=== PATIENT | male | born 1955 | race Two or more races ===

== ENCOUNTER 2019-12-28 22:22 | Inpatient (IN) | payer BC, OTHER ==
[~2019-12-28] VITALS: Ht 172.7 cm; Wt 66.2 kg
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
[2019-12-28 22:42] LABS: BASOPHILS # (AUTO) 0.1 /CMM (0.0-0.2); BASOPHILS % (AUTO) 0.8 % (0.0-2.0); EOSINOPHILS % (AUTO) 1.8 % (0.0-6.0); HEMATOCRIT 44 % (39-51); HEMOGLOBIN 14.9 g/dL (13.5-17.5); LYMPHOCYTES # (AUTO) 2.7 /CMM (0.8-4.8); LYMPHOCYTES % (AUTO) 30.8 % (20.0-44.0); MEAN CORPUSCULAR HGB CONC 34 g/dl (31.0-36.0); MEAN CORPUSCULAR VOLUME 90 fL (80-96); MONOCYTES # (AUTO) 0.8 /CMM (0.1-1.30); MONOCYTES % (AUTO) 9.5 % (2.0-12.0); NEUTROPHILS # (AUTO) 4.9 /CMM (1.8-8.9); NEUTROPHILS % (AUTO) 57.1 % (43.0-81.0); PLATELET COUNT (AUTO) 305 /CMM (150-450); RED BLOOD CELL COUNT(AUTO) 4.93 MIL/uL (4.5-6.0); WHITE BLOOD COUNT (AUTO) 8.6 K/uL (4.3-11.0)
--- NOTE | 2019-12-28 22:44 | NUR ---
IV LINE ESTABLISHED, FLUSHES WELL. PT KEYLA WELL.
[2019-12-28 22:50] LABS: CALCIUM, SERUM 9.1 mg/dL (8.5-10.1); CARBON DIOXIDE 29 mmol/L (21-32); CHLORIDE 104 mmol/L (98-107); CREATININE 0.7 mg/dL (0.6-1.3); GLUCOSE 104 mg/dL (74-106); POTASSIUM 3.2 mmol/L (3.5-5.1); SODIUM SERUM 141 mmol/L (136-145); UREA NITROGEN, BLOOD 14 mg/dL (7-18)
--- NOTE | 2019-12-28 22:55 | NUR ---
XRAY AT BEDSIDE
--- NOTE | 2019-12-28 23:45 | NUR ---
DR. LUI AT BEDSIDE
[2019-12-29] MEDS ORDERED: Z GUARD REMEDY 2 OZ OINT TP PRN
[2019-12-29] MEDS ORDERED: HYDROCODONE/APAP 5/325MG 1 EACH TABLET PO PRN
[2019-12-29] MEDS ORDERED: ONDANSETRON HCL/PF 4 MG/2 ML VIAL IVP PRN
[2019-12-29] MEDS ORDERED: ACETAMINOPHEN 325 MG TABLET PO PRN
[2019-12-29] MEDS ORDERED: MAGNESIUM HYDROXIDE 30 ML UDC PO PRN
[2019-12-29] MEDS ORDERED: MAG HYDROX/AL HYDROX/SIMETH 30 ML UDC PO PRN
[2019-12-29] MEDS ORDERED: ASPI-1169 PO (00:10)
--- NOTE | 2019-12-29 00:29 | NUR ---
REPORT GIVEN TO JAVIER PEREZ FOR OLLIE
[2019-12-29] MEDS ORDERED: NITROGLYCERIN PACKET 1 GM PACKET TOP SCH (00:30)
[2019-12-29 00:40] VITALS: BP 135/78
--- NOTE | 2019-12-29 00:40 | NUR ---
SENIOR ADVISORY OPENING NOTES RECEIVED PATIENT FROM ER TRANSFERRED TO BED SAFELY. AWAKE ALERT AND ORIENTED X4, RESPIRATIONS EVEN AND UNLABORED WITH EQUAL RISE AND FALL OF CHEST, DENIES ANY CHEST PAIN AT THIS TIME STATES " HAD A EPISODE OF PINCH FEELING IN ER BUT NOT AT THIS TIME", VS WNL. IV SITE TO LEFT AC #20G INTACT AND PATENT, NO REDNESS, NO INFILTRATION PRESENT, ORIENTED TO STAFF AND CALL LIGHT AND KEPT WITHIN REACH, SAFETY PRECAUTIONS IN PLACE, LOW BED AND LOCKED, ALL NEEDS ATTENDED AT THIS TIME, WILL CONTINUE TO MONITOR, PLACED ON CARDIAC TELE MONITOR SB 58 SR 60. BELONGINGS LIST DONE, PATIENT PREFERS TO KEEP HIS RAYA AT BEDSIDE INSTEAD OF SAFE, WANTS TO KEEP WALLET IN POCKET, PATIENT ALSO PREFERS TO LEAVE PERSONAL CLOTHES ON AND DENIES ANY SKIN ISSUES WHEN ASKED. DR. LUI MADE AWARE OF POTASSIUM LEVEL 3.2 , PER MD WILL FOLLOW UP ,WILL NEW ORDERS IS ANY. PATIENT OFFERED FLUIDS ALL NEEDS ATTENDED AT THIS TIME, WILL CONTINUE TO MONITOR.
--- NOTE | 2019-12-29 00:45 | NUR ---
PT TRANSFERRED PER [facility] [employer]
[2019-12-29 01:22] VITALS: BP 135/78
--- NOTE | 2019-12-29 03:25 | NUR ---
RN AMA NOTES PATIENT WAS IN ROOM 310-1,ROOM CHANGE DONE REQUESTED BY PATIENT,NO ROOMATE IN 310-1, PT REQUESTED DOOR CLOSED. PATIENT WAS SLEEPING THAN CAME OUT OF ROOM STATING HES UPSET STATES HE WANTS TO LEAVE, CANNOT STAY HERE, CANNOT STAND TO HEAR OTHER PATIENTS, ATTEMPTED TO ADDRESS NEEDS PATIENT DID NOT WANT TO STAY STATES "TAKE THIS OFF OF ME IM LEAVING" , CARDIAC TELE MONITOR REMOVED, IV SITE REMOVED, NAME BAND REMOVED. AMA PAPER WORK SIGNED PATIENT VERBALIZES HE UNDERSTANDS, PATIENT TOOK BELONGINGS WITH HIM. MADE PATIENT AWARE NEED TO REMOVE NITRO PATCH PLACED TO LEFT CHEST, PATIENT THAN SNATCHED IT OFF HIMSELF AND THREW IT IN THE HALLWAY. PATIENT WAS THAN ACCOMPANIED BY STAFF OUT OF HOSPITAL , WHEN ASKED HOW HE WOULD GET HOME STATED " ILL GET AN UBER". DR. LUI MADE AWARE, AMA FORM PLACED IN CHART.
[2019-12-29] MEDS ORDERED: ASPIRIN 81 MG TAB.CHEW PO SCH (09:00)
[2019-12-29] MEDS ORDERED: ASPIRIN 325 MG TABLET PO SCH (09:00)
== END 2019-12-29 03:30 | disposition left against medical advice (07) | DRG 310 ==
LOC: ER 22:24 → TELE 12-29 00:05
PROVIDERS: ADMIT Internal Medicine; ATTEND Internal Medicine
DX: I48.0 Paroxysmal atrial fibrillation (principal); E87.6 Hypokalemia; I10 Essential (primary) hypertension
CPT/HCPCS: 36415; 71045-TC; 80048-TC; 84484-TC; 85025-TC; 87081-TC; G0378